=== PATIENT | male | born 1995 | race Asian ===

== ENCOUNTER 2017-09-26 12:52 | Emergency (ER) | payer OTHER ==
[~2017-09-26] VITALS: Ht 177.8 cm; Wt 70.7 kg
[2017-09-26] MEDS ORDERED: ONDANSETRON 2MG/ML, 2ML IVPush ONE (14:00)
[2017-09-26] MEDS ORDERED: ONDANSETRON 2MG/ML, 2ML ONE (14:23)
[2017-09-26 15:54] VITALS: BP 121/74
== END 2017-09-26 16:15 | disposition home or self-care (01) ==
LOC: ED 15:59
DX: S09.90XA Unspecified injury of head, initial encounter (principal); W13.8XXA Fall from, out of or through other building or structure, initial encounter; Y93.89 Activity, other specified; Y92.328 Other athletic field as the place of occurrence of the external cause; Y99.8 Other external cause status
CPT/HCPCS: 70450; 99284